=== PATIENT | female | born 1950 | race Caucasian/White ===

== ENCOUNTER 2016-11-25 08:05 | Emergency (ER) | payer OTHER, MEDICARE ==
[~2016-11-25] VITALS: Ht 167.6 cm; Wt 89.8 kg
--- NOTE | 2016-11-25 08:13 | ED CARDIAC/CP/PALPITATIONS ---
History of Present Illness General Chief Complaint: Chest Pain Stated Complaint: 'i have afib' Source: patient, family Exam Limitations: no limitations Vital Signs & Intake/Output Vital Signs & Intake/Output Vital Signs Date Time Temp Pulse Resp B/P Pulse O2 O2 Flow FiO2 Ox Delivery Rate 11/25 1230 98.0 88 20 116/67 98 Room Air 11/25 1007 98.0 84 20 120/84 11/25 0814 97.0 80 20 151/94 95 Room Air Allergies Coded Allergies: Sulfa (Sulfonamide Antibiotics) (DIFFICULTY BREATHING 11/25/16) aspirin (DIFFICULTY BREATHING 11/25/16) Reconcile Medications Cholecalciferol (Vitamin D3) (Vitamin D) 2,000 UNIT TABLET 1 TAB PO DAILY SUPPLEMENT (Reported) Metoprolol Succinate 50 MG TAB.ER.24H 0.5 TAB PO DAILY HEART (Reported) Multivitamin (Daily Multiple Vitamin) 1 EACH TABLET 1 TAB PO DAILY SUPPLEMENT (Reported) Olmesartan Medoxomil (Benicar) 5 MG TABLET 1 TAB PO DAILY HEART (Reported) Rivaroxaban (Xarelto) 20 MG TABLET 1 TAB PO DAILY BLOOD THINNER (Reported) with food Rosuvastatin Calcium (Crestor) 10 MG TABLET 1 TAB PO DAILY CHOLESTEROL ( Reported) Ubidecarenone (Co Q-10) 400 MG CAPSULE 1 CAP PO DAILY SUPPLEMENT (Reported) Triage Nurses Notes Reviewed? yes Onset: Abrupt Duration: minute(s): (15) Timing: single episode today Quality/Severity: moderate Location: [facility] Activities at Onset: DRINKING COFFEE HPI: This is a 66-year-old female who presents to the ER for chief complaint of sensation of palpitations and some throat tightness this morning at around 7:00 while having her coffee. She states the sensation lasted for 15 minutes. Patient was diagnosed with A. fib on Saturday and sent to [facility]. There she was started on Zaroxolyn 20 mg daily. She is also now on metoprolol. She saw Ricky Deleon MD and had an echocardiogram and is going to be following up with them. No history of A. fib but she was unsure of how long she been in it. Immediately a new practitioner and they did a baseline EKG and found her to be in A. fib. No history of previous palpitations. She states she didn't know that she was in A. fib. Denies any history of previous coronary disease. Currently she is asymptomatic. Past History Travel History Traveled to [place] past 21 day No Medical History Any Pertinent Medical History? see below for history Cardiovascular: AFIB Surgical History Surgical History: non-contributory Family History Hx Contributory? No Review of Systems Review of Systems Constitutional: Denies: chills, fever. EENTM: Reports: see HPI (THROAT TIGHTNESS). Respiratory: Denies: cough, short of breath. Cardiovascular: Reports: palpitations. Denies: chest pain. GI: Reports: no symptoms. Genitourinary: Reports: no symptoms. Musculoskeletal: Reports: no symptoms. Skin: Reports: no symptoms. Neurological/Psychological: Reports: anxiety. Hematologic/Endocrine: Denies: bruising, bleeding. Immunologic/Allergic: Denies: splenectomy. All Other Systems: Reviewed and Negative Physical Exam Physical Exam General Appearance: well developed/nourished, alert, awake, anxious Head: atraumatic, normal appearance Eyes: Bilateral: normal appearance, PERRL, EOMI. Ears, Nose, Throat: normal pharynx, normal ENT inspection, hearing grossly normal Neck: normal inspection, supple, full range of motion Respiratory: normal breath sounds, chest non-tender, no respiratory distress Cardiovascular: regular rate/rhythm Peripheral Pulses: 2+ radial (R), 2+ radial (L) Gastrointestinal: normal bowel sounds, soft, non-tender Rectal: normal exam, normal rectal tone Extremities: normal inspection, normal capillary refill, normal range of motion Neurologic/Psych: awake, alert, oriented x 3 Skin: intact, normal color, warm/dry Core Measures ACS in differential dx? Yes ASA ordered for poss ACS? No-other contraindication (XARELTO) Severe Sepsis Present: No Septic Shock Present: No Progress Differential Diagnosis: AMI, aortic dissection, atrial fibrillation, CHF/pulm edema, pulmonary embolism Plan of Care: Orders Procedure Date/time Status Heart Healthy Diet 11/25 L Active TROPONIN LEVEL 11/25 1220 Complete EKG 11/25 1220 Active Telemetry/Marketing Senior Recruiter 11/25 0823 Active TROPONIN LEVEL 11/25 0820 Complete PARTIAL THROMBOPLASTIN TIME 11/25 0820 Complete PROTHROMBIN TIME 11/25 0820 Complete MAGNESIUM 11/25 0820 Complete COMPREHENSIVE METABOLIC PANEL 11/25 0820 Complete CHOLESTEROL 11/25 0820 Complete CBC WITHOUT DIFFERENTIAL 02/05 0820 Complete EKG 11/25 805 Active Laboratory Tests 11/25/16 1220: Troponin I < 0.01 11/25/16 0824: Anion Gap 7, Estimated GFR 45 L, BUN/Creatinine Ratio 18.3, Glucose 112 H, Calcium 9.8, Magnesium 2.1, Total Bilirubin 0.7, AST 34, ALT 100 H, Alkaline Phosphatase 90, Troponin I < 0.01, Total Protein 6.8, Albumin 4.0, Globulin 2.8, Albumin/Globulin Ratio 1.4, Cholesterol 210 H, PT 14.3 H, INR 1.37 H, APTT 46 H, CBC w Diff NO MAN DIFF REQ, RBC 4.79, MCV 85.1, MCH 28.3, RDW 14.4, MPV 7.9, Gran % 64.0, Lymphocytes % 24.6, Monocytes % 7.9, Eosinophils % 2.5, Basophils % 1.0, Absolute Granulocytes 4.0, Absolute Lymphocytes 1.5, Absolute Monocytes 0.5 , Absolute Eosinophils 0.2, Absolute Basophils 0.1, PUBS MCHC 33.3 Initial ED EKG: AFIB, ST depression (v3-v6 t wave inversion) Prior EKG: unchanged (afib @101, v3-v6 flat st) Repeat EKG: unchanged Rhythm Strip: atrial fibrillation Departure Departure Time of Disposition: 1315 Disposition: HOME OR SELF CARE Condition: Stable Clinical Impression Primary Impression: Afib Referrals: LUKE MAZARIEGOS,RICKY SHER Additional Instructions: Continue your prescribed medications and follow up with Dr. Deleon in the office. Return to the ER for any changing or worsening symptoms. Departure Forms: Customer Survey General Discharge Information Critical Care Note Critical Care Note Critical Care Time: non-applicable
[2016-11-25 08:41] LABS: ABSOLUTE BASOPHIL COUNT 0.1 /CUMM (0.0-0.2); ABSOLUTE EOSINOPHIL COUNT 0.2 /CUMM (0.0-0.7); ABSOLUTE LYMPH COUNT 1.5 /CUMM (1.2-3.4); ABSOLUTE MONOCYTE COUNT 0.5 /CUMM (0.10-0.60); EOSINOPHIL % 2.5 % (0-5); HEMATOCRIT 40.7 % (37-47); MEAN CORPUSCULAR HGB 28.3 PG (27.0-31.0); MEAN CORPUSCULAR HGB CONC 33.3 G/DL (33.0-37.0); MEAN CORPUSCULAR VOLUME 85.1 FL (81.0-99.0); MEAN PLATELET VOLUME 7.9 FL (7.4-10.4); PLATELET COUNT 244 /CUMM (130-400); RBC DISTRIBUTION WIDTH 14.4 % (11.5-14.5); RED BLOOD CELL CT 4.79 /CUMM (4.20-5.40); WHITE BLOOD CELL COUNT 6.3 /CUMM (4.8-10.8)
[2016-11-25 08:43] LABS: PT 14.3 SEC (9.4-12.5); PTT 46 SEC (25-37)
[2016-11-25] MEDS ORDERED: METOPROLOL SUCC50 M2 PO (08:45)
[2016-11-25] MEDS ORDERED: XARELTO20 M2 PO (08:45)
[2016-11-25] MEDS ORDERED: BENICAR5 M1 PO (08:45)
[2016-11-25] MEDS ORDERED: CRESTOR10 M1 PO (08:45)
[2016-11-25] MEDS ORDERED: DAILY MULTIPLE1 EACH PO (08:46)
[2016-11-25] MEDS ORDERED: VITAMIN D2000 UNI1 PO (08:46)
[2016-11-25] MEDS ORDERED: CO Q-10400 MG PO (08:47)
[2016-11-25 12:30] VITALS: BP 116/67
== END 2016-11-25 13:22 ==
LOC: ERH 08:05
PROVIDERS: Emergency Medicine
DX: I48.91 Unspecified atrial fibrillation (principal)
CPT/HCPCS: 93005; 93010

== ENCOUNTER 2017-01-15 16:32 | Emergency (ER) | payer OTHER, MEDICARE ==
[~2017-01-15] VITALS: Ht 167.6 cm; Wt 90.7 kg
[~2017-01-15 16:32] MED LIST: BENICAR5 M1 PO; CO Q-10400 MG PO; CRESTOR10 M1 PO; DAILY MULTIPLE1 EACH PO; METOPROLOL SUCC50 M2 PO; VITAMIN D2000 UNI1 PO; XARELTO20 M2 PO
--- NOTE | 2017-01-15 17:17 | ED CARDIAC/CP/PALPITATIONS ---
History of Present Illness General Chief Complaint: Chest Pain Stated Complaint: CHEST PAIN Source: patient, family, old records Exam Limitations: no limitations Vital Signs & Intake/Output Vital Signs & Intake/Output Vital Signs Date Time Temp Pulse Resp B/P Pulse O2 O2 Flow FiO2 Ox Delivery Rate 01/15 2133 98.2 67 18 128/80 98 Room Air 01/15 1925 98.4 67 18 126/80 98 Room Air 01/15 1800 Room Air 01/15 1712 137/75 01/15 1712 72 122/76 01/15 1650 96.7 68 18 126/82 96 Room Air Room Air ED Intake and Output 01/16 0000 01/15 1200 Intake Total Output Total Balance Patient 200 lb Weight Allergies Coded Allergies: Sulfa (Sulfonamide Antibiotics) (DIFFICULTY BREATHING 11/25/16) aspirin (DIFFICULTY BREATHING 11/25/16) Reconcile Medications Amiodarone HCl (Unknown Strength) TABLET (Unknown Dose) UNKNOWN (Reported) Calcium Carb/Mag Oxide/Zinc Ox (Zdyarzw-Tntbvupme-Hfvs Caplet) (Unknown Strength ) TABLET (Unknown Dose) PO DAILY SUPPLEMENT (Reported) Cholecalciferol (Vitamin D3) (Vitamin D) 2,000 UNIT TABLET 1 TAB PO DAILY SUPPLEMENT (Reported) Cyanocobalamin (Vitamin B-12) (Unknown Strength) TABLET (Unknown Dose) PO DAILY SUPPLEMENT (Reported) Digoxin 250 MCG TABLET 1 TAB PO DAILY HEART (Reported) Metoprolol Succinate 50 MG TAB.ER.24H 1 TAB PO DAILY HEART (Reported) Multivitamin (Daily Multiple Vitamin) 1 EACH TABLET 1 TAB PO DAILY SUPPLEMENT (Reported) Olmesartan Medoxomil (Benicar) 5 MG TABLET 1 TAB PO DAILY HEART (Reported) Pyridoxine HCl (Vitamin B-6) (Unknown Strength) TABLET (Unknown Dose) PO DAILY SUPPLEMENT (Reported) Rivaroxaban (Xarelto) 20 MG TABLET 1 TAB PO DAILY BLOOD THINNER (Reported) with food Ubidecarenone (Co Q-10) 400 MG CAPSULE 1 CAP PO DAILY SUPPLEMENT (Reported) Triage Note: PT TO TRIAGE WITH CHEST PAIN FOR 30 MINS PRIOR TO ARRIVAL. PT HAD JUST AWOKE FROMA NAP WHEN PAIN STARTED. PAIN IS PRESSURE AND BAND LIKE AROUND HER CHEST. PT STATES WHEN IT STARTED IT WAS 9/10 AND AND CURRENTLY 1/10. PT SKIN IS WARM AND DRY, DENIES HAVE DIAPHORESIS. STATES SOB WAS WORSE WHEN PAIN IS WORSE. STATES SHE HAS BEEN SOB SINCE BEING DIAGNOSED WITH AFIB ABOUT 2 MONTHS PRIOR. PT HAS NOT BEEN ABLE TO CONVERT SINCE THEN AND IS BEING SCHEDULED FOR AN ABLATION. PT VOMITED ONCE PRIOR TO ARRIVAL. STATES SHE IS ONLY SLIGHTLY NAUSEOUS NOW. Triage Nurses Notes Reviewed? yes Onset: Abrupt Duration: hour(s): Timing: recent history Quality/Severity: moderate, severe Location: central Radiation: back HPI: 58-year-old female comes into emergency room with complaints of chest pain has been going on since about an hour prior to arrival but has resolved. Patient reports that she woke up from a nap and felt a severe pain shooting across her chest and wrapping around her back. Patient had one episode of vomiting on the way over here. Her drove her in. She was recently diagnosed with A. fib and is currently on XARELTO. She reports that the pain lasted for approximately 20 minutes and then resolved. She denies any recurrent pain at this time. Denies any shortness of breath below her normal baseline. Patient reports that she's had a bunch of her issues since October of this year and her residential door unit installer is Dr. Deleon. (RHETT BOCANEGRA) Past History Travel History Traveled to [place] past 21 day No Medical History Any Pertinent Medical History? see below for history Neurological: NONE EENT: NONE Cardiovascular: AFIB Respiratory: NONE Gastrointestinal: NONE Hepatic: NONE Renal: NONE Musculoskeletal: NONE Psychiatric: NONE Endocrine: NONE Blood Disorders: NONE Cancer(s): NONE Surgical History Surgical History: non-contributory Psychosocial History What is your primary language Sierra Leonean Tobacco Use: Quit >30 days ago Family History Hx Contributory? No (RHETT BOCANEGRA) Review of Systems Review of Systems Constitutional: Reports: see HPI. EENTM: Reports: no symptoms. Respiratory: Reports: see HPI. Cardiovascular: Reports: see HPI. GI: Reports: see HPI. Genitourinary: Reports: no symptoms. Musculoskeletal: Reports: no symptoms. Skin: Reports: no symptoms. Neurological/Psychological: Reports: no symptoms. Hematologic/Endocrine: Reports: no symptoms. Immunologic/Allergic: Reports: no symptoms. All Other Systems: Reviewed and Negative (RHETT BOCANEGRA) Physical Exam Physical Exam General Appearance: well developed/nourished, no apparent distress, alert Head: atraumatic, normal appearance Eyes: Bilateral: normal appearance, EOMI. Ears, Nose, Throat: normal pharynx, normal ENT inspection Neck: normal inspection, full range of motion Respiratory: normal breath sounds, no respiratory distress Cardiovascular: irregularly irregular Back: normal inspection Extremities: normal inspection, normal range of motion Neurologic/Psych: awake, alert, oriented x 3, normal gait, normal mood/affect Skin: intact, normal color Core Measures ACS in differential dx? Yes Severe Sepsis Present: No Septic Shock Present: No (RHETT BOCANEGRA) Progress Differential Diagnosis: AMI, aortic dissection, atrial fibrillation, CHF/pulm edema, hyperkalemia, hypovolemia, hyperthyroid, musculoskeletal pain, myocarditis, pancreatitis, pericarditis, pneumonia, pneumothorax, pulmonary embolism, PUD/GERD, PVCs/PACs, respiratory failure, rib fracture, sepsis, unstable angina, V-fib/V-Tach, WPW syndrome Plan of Care: Orders Procedure Date/time Status TROPONIN LEVEL 01/15 2115 Complete EKG 01/15 2115 Active Telemetry/Chief Internal Auditor 01/15 171 Active TROPONIN LEVEL 01/15 1700 Complete COMPREHENSIVE METABOLIC PANEL 01/15 170 Complete CBC WITHOUT DIFFERENTIAL 01/15 1700 Complete EKG 01/15 1633 Active Laboratory Tests 01/15/172118: Troponin I 0.02 01/15/171714: Anion Gap 11, Estimated GFR 49 L, BUN/Creatinine Ratio 28.2 H, Glucose 95, Calcium 10.2, Total Bilirubin 0.5, AST 29, ALT 46, Alkaline Phosphatase 95, Troponin I 0.03, Total Protein 7.2, Albumin 4.1, Globulin 3.1, Albumin/Globulin Ratio 1.3, CBC w Diff NO MAN DIFF REQ, RBC 5.16, MCV 84.7, MCH 28.0, RDW 15.0 H , MPV 7.5, Gran % 57.8, Lymphocytes % 29.4, Monocytes % 8.9, Eosinophils % 3.0, Basophils % 0.9, Absolute Granulocytes 3.7, Absolute Lymphocytes 1.9, Absolute Monocytes 0.6, Absolute Eosinophils 0.2, Absolute Basophils 0.1, PUBS MCHC 33.0 Diagnostic Imaging: Viewed by Me: Radiology Read. Discussed w/RAD: Radiology Read. Radiology Impression: SERVICE DATE: 01/15/17-1717 EXAM TYPE: RAD - XRY-CHEST XRAY, PA AND LATERAL EXAMINATION: XR CHEST CLINICAL INFORMATION: Chest pain COMPARISON: None TECHNIQUE: 2 views of the chest were obtained. FINDINGS: Tiny metallic density projecting upon the left costophrenic sulcus is external to the chest. Mild cardiomegaly. Lungs are clear. Mild degenerative changes of the thoracic spine. IMPRESSION: No acute pulmonary disease. DICTATED BY: RADHA AVILA MD DATE/TIME DICTATED:01/15/172 PATIENT SCHEDULING COORDINATOR:BRODY Initial ED EKG: rate (51), AFIB, nonspecific ST T wave chg, ST depression Prior EKG: unchanged Comments: 01/15/2017 6:52:[address] Hinojosa covering for their service. Due to the fact that the patient's EKG shows chronic ST depressions from that are unchanged and the patient has been chest pain-free here we will keep her for a second EKG and second troponin. If patient remains chest pain-free then she will go home with follow-up tomorrow in office. 01/15/2017 11:32:49 PM Patient continued to remain chest pain-free. She clinically looks well and is in no apparent distress upon discharge. Case discussed with Dr. downing. 2 normal troponins. Patient will follow up closely as an outpatient. No suspicion for pulmonary embolism or aortic dissection. She is not hypertensive. (DIANE BIGGS,RHETT) Departure Departure Disposition: HOME OR SELF CARE Condition: Stable Clinical Impression Primary Impression: Atypical chest pain Referrals: ARMANDO MAZARIEGOS,CAIN Yu (PCP/Family) Additional Instructions: Contact her residential door unit installer tomorrow for follow-up. Please return to the emergency room if you have any return of chest pain or any other concerns worsening symptoms. Please go over all results of today's visit with your primary care doctor. Contact your primary care doctor to let them know you were here in the emergency room. There may be nonspecific findings which may not be related to your visit today here in the emergency room but may require further evaluation and chronic monitoring by your primary care doctor. If you had a laceration today the chance of foreign body always remains. You should follow-up with your primary care doctor for recheck in 3-5 days for a wound check. If you had an x-ray done there is a chance that a fracture could have been missed on initial read and you should follow-up with your primary care doctor for repeat x-rays if symptoms persist. If your blood pressure was elevated here in the emergency room please have rechecked by her primary care doctor within the next 48 hours by your primary care doctor. If you were prescribed a narcotic here in the emergency room or any type of controlled substances you're not allowed to drive while taking this medication or operate any type of heavy machinery. Narcotics can make you feel lightheaded dizziness nausea and can cause constipation. You may need to pickle sorter a stool softener. Thank you for choosing [facility] emergency room. Please return to the emergency room immediately if you have any other concerns worsening of symptoms. Departure Forms: Customer Survey General Discharge Information (RHETT BOCANEGRA) PA/PERL SOFTWARE ENGINEER Co-Sign Statement Statement: ED Attending supervision documentation- [X] I saw and evaluated the patient. I have also reviewed all the pertinent lab results and diagnostic results. I agree with the findings and the plan of care as documented in the PA's/PERL SOFTWARE ENGINEER's documentation. [X] I have reviewed the ED Record and agree with the PA's/PERL SOFTWARE ENGINEER's documentation. [] Additions or exceptions (if any) to the PAs/PERL SOFTWARE ENGINEER's note and plan are summarized below: [] (ELFEGO MAZARIEGOS,ERICA) Critical Care Note Critical Care Note Critical Care Time: non-applicable (RHETT BOCANEGRA)
[2017-01-15 17:31] LABS: ABSOLUTE BASOPHIL COUNT 0.1 /CUMM (0.0-0.2); ABSOLUTE EOSINOPHIL COUNT 0.2 /CUMM (0.0-0.7); ABSOLUTE GRANULOCYTE CT 3.7 /CUMM (1.4-6.5); ABSOLUTE LYMPH COUNT 1.9 /CUMM (1.2-3.4); ABSOLUTE MONOCYTE COUNT 0.6 /CUMM (0.10-0.60); BASOPHIL % 0.9 % (0.0-2.0); GRANULOCYTE % 57.8 % (42.2-75.2); HEMATOCRIT 43.7 % (37-47); MEAN CORPUSCULAR VOLUME 84.7 FL (81.0-99.0); MEAN PLATELET VOLUME 7.5 FL (7.4-10.4); PLATELET COUNT 265 /CUMM (130-400); RED BLOOD CELL CT 5.16 /CUMM (4.20-5.40); WHITE BLOOD CELL COUNT 6.4 /CUMM (4.8-10.8)
--- NOTE | 2017-01-15 17:38 | RADIOLOGY REPORT ---
EXAMINATION: XR CHEST CLINICAL INFORMATION: Chest pain COMPARISON: None TECHNIQUE: 2 views of the chest were obtained. FINDINGS: Tiny metallic density projecting upon the left costophrenic sulcus is external to the chest. Mild cardiomegaly. Lungs are clear. Mild degenerative changes of the thoracic spine. IMPRESSION: No acute pulmonary disease.
[2017-01-15] MEDS ORDERED: AMIODARONE HCL200 M1 (17:52)
[2017-01-15] MEDS ORDERED: DIGOXIN250 MCG PO (17:52)
[2017-01-15] MEDS ORDERED: CALCIUM-MAGNES1 EAC3 PO (17:53)
[2017-01-15] MEDS ORDERED: VITAMIN B-121000 MC3 PO (17:54)
[2017-01-15] MEDS ORDERED: VITAMIN B-650 M2 PO (17:54)
[2017-01-15 21:33] VITALS: BP 128/80
== END 2017-01-15 22:26 ==
LOC: ERH 16:32
PROVIDERS: Physician Assistant Medical
DX: R07.89 Other chest pain (principal)
CPT/HCPCS: 93005; 93010